=== PATIENT | male | born 1935 | race Caucasian/White ===

== ENCOUNTER 2017-09-21 21:06 | Observation (INO) ==
[2017-09-21] MEDS ORDERED: Ondansetron 4 MG/2 ML VIAL IVP ONE (21:41)
--- NOTE | 2017-09-21 21:44 | Emergency Department Note ---
Disposition Clinical Impression: Vertigo Disposition: Admitted As Inpatient Condition: Fair Referrals: Flakito Pascual CNP [Primary Care Provider] - Forms: ED Satisfaction Letter Dizziness HPI - General Chief Complaint: ED Dizziness Stated Complaint: Dizziness Nausea Time Seen by Provider: 09/21/17 21:10 Source: patient Mode of arrival: EMS Limitations: no limitations Nursing Notes Reviewed: Yes Vital Signs Reviewed: Yes - History of Present Illness HPI Narrative: 82-year-old male since for evaluation of dizziness, nausea vomiting, sweating, and tinnitus. Patient states he had his ear cleaned out on the left side yesterday because of cerumen impaction. Today while eating he developed sudden onset of dizziness nausea vomiting and tinnitus. He states no associated headache. He denies any chest pain or shortness of breath. He states no weakness of his upper and lower extremities. - Related Data Home Medications Medication Instructions Recorded Confirmed Antiox#10/Om3/Dha/Epa/Lut/Zeax 1 each PO DAILY 07/27/15 07/27/15 [I-Caps with Lutein-[place] 3 Sfg] Aspirin [Adult Low Dose Aspirin EC] 81 mg PO DAILY 07/27/15 07/27/15 Garlic 1,000 mg PO DAILY 07/27/15 07/27/15 Multivit with Iron-Minerals 1 each PO DAILY 07/27/15 07/27/15 [Compete] Omeprazole [PriLOSEC] 20 mg PO DAILY 07/27/15 07/27/15 Vitamin B Complex/Folic Acid 2,000 mcg PO DAILY 07/27/15 07/27/15 [B-Stress Capsules] Previous Rx's Medication Instructions Recorded Dicyclomine [Bentyl] 20 mg PO QID #20 capsule 07/27/15 Allergies Allergy/AdvReac Type Severity Reaction Status Date / Time Sulfa (Sulfonamide AdvReac Nausea Verified 07/27/15 18:02 Antibiotics) Review of Systems: Constitutional: [Negative for fever and chills.] HENT: [Negative for congestion.] Eyes: [Negative for discharge.] Respiratory: [Negative for shortness of breath.] Cardiovascular: [Negative for chest pain.] Gastrointestinal: [Negative for nausea, vomiting, abdominal pain and diarrhea.] Endocrine: [Negative for excessive thirst,urination] Genitourinary: [Negative for dysuria and frequency.] Musculoskeletal: [Negative for myalgias and arthralgias.] Skin: [Negative for rash.] Neurological: see The history of present illness Psychiatric/Behavioral: [Negative for nervous/anxious.] All other systems reviewed and are negative. Past Medical History - Past Medical History Attestation: Yes The following information was validated with the patient. Source: patient Medical history: Reports: cancer, other Psychiatric history: Reports: no psych history - Social History Smoking Status: Former smoker Smokeless Tobacco Status: No Alcohol use: Reports: none Drug use: Reports: none Physical Exam Constitutional: Patient is [alert], appears very uncomfortable keeping his eyes closed and not wanting to move his head and cooperative. . The patient appears symptomatic, nontoxic but does appear acutely vertiginous. HENT: Head: Normocephalic and atraumatic. Right Ear: External ear normal. Left Ear: External ear normal. Nose: Nose normal. Mouth/Throat: Oropharynx is clear and mucous membranes show [good hydration.] Eyes: Conjunctivae and EOM are normal. Pupils are equal, round, and reactive to light. Right eye exhibits [no] discharge. Left eye exhibits [no] discharge. Neck: Trachea is midline, normal range of motion and [phonation normal]. Neck supple. Cardiovascular: [Regular rhythm], S1 normal, S2 normal, normal heart sounds and intact distal pulses. Exam reveals no gallop and no friction rub. No murmur heard. [Capillary refill is brisk.] [Peripheral pulses are 2+] Pulmonary/Chest: Effort [normal] No stridor. [No] tachypnea. [No] respiratory distress. There are [no] decreased breath sounds. [There no wheezes, no rhonchi , or rales.] Abdominal: Soft. [Bowel sounds are normal]. There exhibits [no] distension and [no] mass. There is no hepatosplenomegaly. There is [no tenderness], [no] CVA tenderness. There is [no rigidity, no rebound, no guarding]. Musculoskeletal: Normal range of motion of uninvolved extremities. There exhibits [no edema]. [ ] Neurological: Patient is alert. He has no focal motor sensory deficits Patient displays no atrophy and no tremor. No cranial nerve deficit and exhibits normal muscle tone. Coordination normal to finger to nose and heel to rebollar testing. Skin: Skin is warm and dry. No erythema. No rash noted. Psychiatric: Patient has a normal mood and affect. Course Course Narrative: Patient was discussed with Dr. Milton for admission. Patient continues to have vomiting and dizziness despite interventions here in the emergency department Dr. Milton is except the patient for admission Vital Signs Temperature 97.6 F 09/21/17 21:28 Pulse Rate 72 09/21/17 21:28 Respiratory Rate 20 09/21/17 21:28 Blood Pressure 133/75 09/21/17 21:28 O2 Sat by Pulse Oximetry 96 09/21/17 21:28 Temperature 97.6 F 09/21/17 21:28 Pulse Rate 79 09/21/17 23:22 Respiratory Rate 18 09/21/17 23:22 Blood Pressure 125/69 09/21/17 23:22 O2 Sat by Pulse Oximetry 95 09/21/17 23:22 Oxygen Delivery Oxygen Delivery Room Air Dizziness - MDM Narrative Medical decision making narrative: Differential diagnosis included SUBARACHNOID HEMORRHAGE, MENINGITIS, INTRACRANIAL HEMORRHAGE, SUBDURAL HEMATOMA, CEREBRAL EDEMA, HYDROCEPHALUS, OR STROKE - Lab Data Lab results reviewed: Yes I reviewed the patient's lab results. Result diagrams: 09/21/17 21:25 09/21/17 21:25 Lab Results 09/21/17 09/21/17 Range/Units 21:25 21:25 WBC 11.6 H (4.3-11.1) K/mcL RBC 3.71 L (4.19-5.50) M/mcL Hgb 12.4 L (12.9-16.9) g/dL Hct 36.6 L (37.5-50.1) % MCV 98.7 (83.0-100.0) fL MCH 33.4 H (28.0-33.3) pg MCHC 33.9 (31.6-35.5) g/dL RDW 13.1 (11.5-14.5) % Plt Count 391 (140-400) K/mcL MPV 9.8 (9.4-12.4) fL Immature Gran % 0.2 (0-4) % Seg Neutrophils % 28.3 % Lymphocytes % 55.9 % Monocytes % 10.4 % Eosinophils % 4.8 % Basophils % 0.4 % Neutrophils # 3.3 (1.6-8.9) K/mcL Lymphocytes # 6.5 H (0.6-4.6) K/mcL Monocytes # 1.2 (0.0-1.3) K/mcL Eosinophils # 0.6 (0.0-0.6) K/mcL Basophils # 0.1 (0.0-0.2) K/mcL Sodium 140 (136-145) mEq/L Potassium 3.2 L (3.5-5.1) mEq/L Chloride 108 H (98-107) mEq/L Carbon Dioxide 22 L (23-29) mEq/L BUN 22 (8-23) mg/dL Creatinine 1.33 H (0.70-1.30) mg/dL Est GFR ( Amer) > 60 (> 60) Est GFR (Non-Af Amer) 51 L (> 60) BUN/Creatinine Ratio 17 (6-26) Glucose 115 H (70-105) mg/dL Calculated Osmolality 294 (280-300) Calcium 9.8 (8.6-10.3) mg/dL Total Bilirubin 0.3 (0.3-1.0) mg/dL AST 14 (13-39) Units/L ALT 12 (7-52) Units/L Alkaline Phosphatase 57 (34-104) Units/L Serum Total Protein 7.2 (6.4-8.9) g/dL Albumin 4.1 (3.5-5.7) g/dL Globulin 3.1 (2.4-3.5) g/dL Albumin/Globulin Ratio 1.3 (1.1-2.2) - Radiology Data Radiology results reviewed: Yes I reviewed the patient's radiology results. CT/CT head/brain wo con IMPRESSION: No acute intracranial abnormality. - EKG Data EKG attestation: Yes I reviewed and interpreted this EKG. EKG shows normal: sinus rhythm, axis, intervals, QRS complexes, ST-T waves Interpretation: normal EKG
[2017-09-21 21:47] LABS: Basophils # 0.1 K/mcL (0.0-0.2); Basophils % 0.4 %; Eosinophils # 0.6 K/mcL (0.0-0.6); Eosinophils % 4.8 %; Hematocrit 36.6 % (37.5-50.1); Hemoglobin 12.4 g/dL (12.9-16.9); Immature Granulocytes % 0.2 % (0-4); Lymphocytes # 6.5 K/mcL (0.6-4.6); Lymphocytes % 55.9 %; Mean Corpuscular HGB Conc 33.9 g/dL (31.6-35.5); Mean Corpuscular Hemoglobin 33.4 pg (28.0-33.3); Mean Corpuscular Volume 98.7 fL (83.0-100.0); Mean Platelet Volume 9.8 fL (9.4-12.4); Monocytes # 1.2 K/mcL (0.0-1.3); Monocytes % 10.4 %; Neutrophils # 3.3 K/mcL (1.6-8.9); Platelet Count 391 K/mcL (140-400); Red Blood Count 3.71 M/mcL (4.19-5.50); Red Cell Distribution Width 13.1 % (11.5-14.5); Segmented Neutrophils % 28.3 %
[2017-09-21 22:00] LABS: Alanine Aminotransferase 12 Units/L (7-52); Albumin 4.1 g/dL (3.5-5.7); Albumin/Globulin Ratio 1.3 (1.1-2.2); Alkaline Phosphatase 57 Units/L (34-104); Aspartate Amino Transferase 14 Units/L (13-39); BUN/Creatinine Ratio 17 (6-26); Bilirubin,Total 0.3 mg/dL (0.3-1.0); Blood Urea Nitrogen 22 mg/dL (8-23); Calcium 9.8 mg/dL (8.6-10.3); Carbon Dioxide 22 mEq/L (23-29); Chloride 108 mEq/L (98-107); Globulin 3.1 g/dL (2.4-3.5); Glucose 115 mg/dL (70-105); Osmolality,Calculated 294 (280-300); Potassium 3.2 mEq/L (3.5-5.1); Sodium 140 mEq/L (136-145); Total Protein 7.2 g/dL (6.4-8.9); eGFR For Non-African Americans 51 (> 60)
[2017-09-21] MEDS ORDERED: *HR* Promethazine 25 MG/ML VIAL ONE (22:32)
[2017-09-21] MEDS ORDERED: *HR* Promethazine 25 MG/ML VIAL IVP ONE (22:35)
[2017-09-21] MEDS ORDERED: Acetaminophen 325 MG TABLET PO PRN (23:26)
[2017-09-21] MEDS ORDERED: Naloxone 0.4 MG/ML INJ IVP PRN (23:26)
[2017-09-21] MEDS ORDERED: diazePAM 10 MG/2 ML SYRINGE IVP PRN (23:27)
[2017-09-22] MEDS ORDERED: *HR* Promethazine 25 MG/ML VIAL IVP PRN (01:05)
[2017-09-22] MEDS: 0.9 % Sodium Chloride 1,000 ML IVC SCH ×2 (01:20→10:52)
[2017-09-22] MEDS: diazePAM 5 MG TABLET PO PRN ×2 (01:22→06:14)
[2017-09-22] MEDS ORDERED: *HR* Promethazine 25 MG/ML VIAL IVP SCH (04:00)
[2017-09-22 07:28] LABS: BUN/Creatinine Ratio 17 (6-26); Blood Urea Nitrogen 19 mg/dL (8-23); Calcium 9.1 mg/dL (8.6-10.3); Carbon Dioxide 24 mEq/L (23-29); Chloride 107 mEq/L (98-107); Glucose 148 mg/dL (70-105); Osmolality,Calculated 289 (280-300); Potassium 4.1 mEq/L (3.5-5.1); Sodium 137 mEq/L (136-145); eGFR For Non-African Americans > 60 (> 60)
--- NOTE | 2017-09-22 07:34 | Internal Med History&Physical ---
Date of Encounter: 09/22/17 Time of Encounter: 07:27 Assessment and Plan (1) Vertigo Current visit: Yes Status: Acute Patient admitted with acute vertigo with related nausea and vomiting and gait abnormality. He is currently in an observation bed. He is too ill to go home at this time. He will be reassessed later today. Meclizine, Phenergan, Valium , IV fluids have been helpful. Negative workup in the ER except for acute kidney injury and hyperkalemia likely related to his vomiting. Negative CT scan of head. Neurologically otherwise intact. (2) Tinnitus of both ears Current visit: Yes Status: Chronic Chronic history of tinnitus. He has an appointment with ENT in about a month. He has difficulty sleeping at night because of it. He has tried "white noise" and background noise and this has not been helpful. (3) Hypokalemia Current visit: Yes Status: Acute Mild hypokalemia on admission. Follow-up electrolytes has been ordered. Was given a dose of potassium in the ER. This is likely from his vomiting. (4) Acute kidney injury Current visit: Yes Status: Acute Acute kidney injury with slightly elevated creatinine from baseline. IV fluids have been initiated. Follow-up lab work has been ordered. Internal Medicine - H&P: HPI Chief complaint: I got dizzy and started throwing up Admitted From: Emergency Dept Plans for Post Hospital Care: Home History of present illness: Mr. 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 He was his usual self until he was seen in the office on 09/19/17 for impacted cerumen in the left ear which was removed by direct visualization with an ear currette. He apparently did well afterwards. Last night however, he was at [employer] and having a conversation with a friend and drinking a Sprite when he had sudden onset of "dizziness" and weakness, sweating and vomiting. They could not get him to his car and had to call the squad. In the ER he was evaluated for vertigo. He had a negative CT scan of the head. He was given meclizine and we started diazepam and he is feeling better. His nausea seems to have quieted down but is not hungry. He prefers to stay in his left side, but after the exam was able to turn to his right side. He denies any headache, blurred vision, change in vision acutely at this time, vomiting, unilateral focal deficit, change in speech etc. He has not tried to sit up or walk since admission. He has used the urinal while lying on his side Past Med Surg Social Fam HX - Past Medical History Medical history: cancer (Prostate cancer 1984, renal cell carcinoma 1988), other (Hyperactive bladder, blind in left eye since age 1.) Psychiatric history: no psych history - Past Surgical History Surgical History: non-contributory, cancer surgery - Social History Smoking Status: Former smoker Smokeless Tobacco Status: No Alcohol use: none Drug use: none - Family History Father Living Status: Hx Family Neuromuscular Disorders: Yes (CVA) Mother Living Status: Hx Family Endocrine Disorder: Yes (Diabetes) Hx Family Reproductive Disorders: Yes (Cervical cancer) Internal Medicine - H&P: Meds Antiox#10/Om3/Dha/Epa/Lut/Zeax [I-Caps with Lutein-[place] 3 Sfg] 1 each PO DAILY 07/27/15 [History] Aspirin [Adult Low Dose Aspirin EC] 81 mg PO DAILY 07/27/15 [History] Dicyclomine [Bentyl] 20 mg PO QID #20 capsule 07/27/15 [Rx] Garlic 1,000 mg PO DAILY 07/27/15 [History] Multivit with Iron-Minerals [Compete] 1 each PO DAILY 07/27/15 [History] Omeprazole [PriLOSEC] 20 mg PO DAILY 07/27/15 [History] Vitamin B Complex/Folic Acid [B-Stress Capsules] 2,000 mcg PO DAILY 07/27/15 [ History] 3 Allergy/AdvReac Type Severity Reaction Status Date / Time Sulfa (Sulfonamide AdvReac Nausea Verified 07/27/15 18:02 Antibiotics) - Constitutional Constitutional: as per HPI, no chills, no fever(s) - EENT Eyes: other visual disturbances (Blind in left eye since 1 years of age) Ears: no ear discharge, no ear pain Nose, mouth and throat: dry mouth, no neck mass, no neck pain, no sinus pressure , no sore throat - Cardiovascular Cardiovascular ROS IM: no chest pain, no dyspnea, no dyspnea on exertion, no syncope - Respiratory Respiratory: no cough, no dyspnea, no hemoptysis, no dyspnea on exertion, no pain with cough - Gastrointestinal Gastrointestinal: as per HPI, vomiting (As in history of present illness), no constipation, no diarrhea, no melena - Genitourinary Genitourinary ROS male: no urinary incontinence, no urinary urgency - Musculoskeletal Musculoskeletal ROS IM: no joint swelling, no muscle weakness - Integumentary Integumentary IM: no rash - Neurological Neurological ROS: as per HPI, vertigo, no abnormal speech, no confusion, no frequent falls, no tremor(s) - Psychiatric Psychiatric: no hallucinations - Constitutional Vitals: Temp Pulse Resp BP Pulse Ox 97.7 F 78 16 110/70 96 09/22/17 04:02 09/22/17 04:02 09/22/17 04:02 09/22/17 04:02 09/22/17 04:02 General appearance: Present: mild distress (Remains on his left side during exam for fear it would cause dizziness to move), A&O X 3, answers questions appropriately - Head Head exam: Present: atraumatic, normal inspection - Eye Eye exam: Present: EOMI. Absent: conjunctival injection Additional comments: The right pupil is reactive to light. I could not elicit nystagmus. No photophobia. 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 Absent: respiratory distress - Cardiovascular Cardiovascular exam: Present: RRR, +S1, +S2 - GI/Abdominal GI/Abdominal exam: Present: hernia (Epigastric midline hernia over his incision. It measures about 4 cm in diameter and easily reducible), soft, no peritoneal signs. Absent: mass, tenderness - Extremities Exam Extremities exam: Present: full ROM. Absent: calf tenderness, pedal edema, tenderness - Neurological Exam Neurological exam: Present: alert, CN II-XII intact (Except he is legally blind in the left eye), oriented X3, strengths equal and symetr throughout. Absent: facial droop, speech deficit Additional comments: Because he has vertigo I did not check his exam in seated position or standing at this time Internal Med - H&P Results - Labs CBC & Chem 7: 09/21/17 21:25 09/22/17 06:40 Labs: labs have been reviewed. Mild hyponatremia. Mild acute kidney injury. Follow- up lab work pending - VTE Documentation of Mechanical Device: Graduated compression elastic hosiery
[2017-09-22] MEDS ORDERED: diazePAM 5 MG TABLET PO PRN (07:44)
[2017-09-22] MEDS: *HR* Promethazine 25 MG/ML VIAL IVP PRN ×2 (09:02→23:12)
[2017-09-22] MEDS: Multivit/Ca/Min/Fe/FA 1 TAB TABLET PO SCH ×2 (09:55→10:02)
[2017-09-22] MEDS: Aspirin Enteric Coated 81 MG Tablet PO SCH (09:55)
[2017-09-22] MEDS: Vitamin B Complex/Vit C/Vit E 1 EACH TABLET PO SCH ×2 (09:56→10:01)
[2017-09-22] MEDS: (Garlic [Garlic] 1,000 MG) PO SCH (09:56)
[2017-09-22] MEDS: [UNRECOGNIZED DRUG - OTHER] PO SCH (09:56)
--- NOTE | 2017-09-22 20:25 | Event Note ---
Date of Encounter: 09/22/17 Time of Encounter: 20:22 I reevaluated the patient tonight after he has had multiple doses of meclizine and diazepam and has had IV fluids. He is eating a very small amount. He sent back most of his tender. He is not interested in eating. He said he had 3 bowel movements and feels like he has some lower abdominal cramping now. He is able to sit at the edge of the bed and with help ambulate about 10 feet to the bathroom. He still feels unstable on his feet. The room does not spin though. When I helped ambulate him to the bathroom, he was unsteady on his feet , drifted to the right side. It was difficult to even get from seated position on the edge of the bed to standing position and needed assistance. He is not ready to safely go home. We will continue IV fluids, meclizine, Valium if needed and time. He will be re-evaluated tomorrow by Dr. Red and most likely discharge at that time. I do not find any new focal neurological change. He did have some lower abdominal cramping when sitting up and has not gone to the bathroom. His abdominal examination was basically normal. Bowel sounds are normal. We will reassess further if needed.
--- NOTE | 2017-09-22 20:28 | Discharge Summary ---
Procedures/tests Complete & Pending: Procedures Performed prior 72 hours Category Date Time Status ECG 12 lead ECG [ECG] Routine Y 09/21/17 21:14 Completed Lab Results 09/21/17 09/21/17 09/22/17 Range/Units 21:25 21:25 06:40 WBC 11.6 H (4.3-11.1) K/mcL RBC 3.71 L (4.19-5.50) M/mcL Hgb 12.4 L (12.9-16.9) g/dL Hct 36.6 L (37.5-50.1) % MCV 98.7 (83.0-100.0) fL MCH 33.4 H (28.0-33.3) pg MCHC 33.9 (31.6-35.5) g/dL RDW 13.1 (11.5-14.5) % Plt Count 391 (140-400) K/mcL MPV 9.8 (9.4-12.4) fL Immature Gran % 0.2 (0-4) % Seg Neutrophils % 28.3 % Lymphocytes % 55.9 % Monocytes % 10.4 % Eosinophils % 4.8 % Basophils % 0.4 % Neutrophils # 3.3 (1.6-8.9) K/mcL Lymphocytes # 6.5 H (0.6-4.6) K/mcL Monocytes # 1.2 (0.0-1.3) K/mcL Eosinophils # 0.6 (0.0-0.6) K/mcL Basophils # 0.1 (0.0-0.2) K/mcL Sodium 140 137 (136-145) mEq/L Potassium 3.2 L 4.1 D (3.5-5.1) mEq/L Chloride 108 H 107 (98-107) mEq/L Carbon Dioxide 22 L 24 (23-29) mEq/L BUN 22 19 (8-23) mg/dL Creatinine 1.33 H 1.13 (0.70-1.30) mg/dL Est GFR ( Amer) > 60 > 60 (> 60) Est GFR (Non-Af Amer) 51 L > 60 (> 60) BUN/Creatinine Ratio 17 17 (6-26) Glucose 115 H 148 H (70-105) mg/dL Calculated Osmolality 294 289 (280-300) Calcium 9.8 9.1 (8.6-10.3) mg/dL Total Bilirubin 0.3 (0.3-1.0) mg/dL AST 14 (13-39) Units/L ALT 12 (7-52) Units/L Alkaline Phosphatase 57 (34-104) Units/L Serum Total Protein 7.2 (6.4-8.9) g/dL Albumin 4.1 (3.5-5.7) g/dL Globulin 3.1 (2.4-3.5) g/dL Albumin/Globulin Ratio 1.3 (1.1-2.2) Date of Encounter: 09/22/17 Time of Encounter: 19:30 - Discharge Diagnosis (1) Vertigo Priority: Primary Status: Acute Comments: Patient was admitted for acute vertiginous symptoms. Workup including CT scan of the head and lab work unremarkable. No signs of CVA. He required admission to observation bed, IV fluids, IV Phenergan, meclizine, diazepam/Valium to get things under control. When reassessed later in the day he was still unstable on his feet, drifted to the left side when going to the bathroom. Has some continued lower GI symptoms. Patient was assessed by Dr. Red on Monday09/23/17 and was discharged to home. Please see his progress note. (2) Tinnitus of both ears Priority: Secondary Status: Chronic Comments: Chronic history of tinnitus. He has an appointment to see an ENT next month. Ear examination is normal. (3) Hypokalemia Priority: Secondary Status: Resolved Comments: On admission his potassium was low at 3.2 . Was given at least 1 dose orally. Today's potassium is normalized. (4) Acute kidney injury Priority: Secondary Status: Resolved Comments: On admission his creatinine was 1.66 with diminished GFR. This is abnormal from his baseline. He was given IV fluids. Follow-up creatinine is normal. Likely the etiology was his vomiting and prerenal changes. Hospital course: Mr. Honeycutt is a 82 year old male was admitted with vertiginous symptoms with nausea vomiting and unstable gait. Please see the history of physical and see the diagnoses as above. Patient was to be evaluated on Monday the prior to discharge. See Dr. Red's progress note. - Time Spent with Patient Total time spent providing and/or coordinating discharge services: - Discharge Medications Prescriptions: diazePAM [Valium] 2.5 mg PO Q4H PRN 7 Days #30 tablet PRN Reason: Dizziness Meclizine [Antivert] 25 mg PO Q4H PRN #30 tablet PRN Reason: Dizziness Home Medications: Antiox#10/Om3/Dha/Epa/Lut/Zeax [I-Caps with Lutein-[place] 3 Sfg] 1 each PO DAILY 07/27/15 [History] Aspirin [Adult Low Dose Aspirin EC] 81 mg PO DAILY 07/27/15 [History] Dicyclomine [Bentyl] 20 mg PO QID #20 capsule 07/27/15 [Rx] Garlic 1,000 mg PO DAILY 07/27/15 [History] Multivit with Iron-Minerals [Compete] 1 each PO DAILY 07/27/15 [History] Omeprazole [PriLOSEC] 20 mg PO DAILY 07/27/15 [History] Vitamin B Complex/Folic Acid [B-Stress Capsules] 2,000 mcg PO DAILY 07/27/15 [ History] Acetaminophen [Tylenol] 650 mg PO Q6HR PRN tablet 09/22/17 [Rx] Meclizine [Antivert] 25 mg PO Q4H PRN #30 tablet 09/22/17 [Rx] diazePAM [Valium] 2.5 mg PO Q4H PRN 7 Days #30 tablet 09/22/17 [Rx] Allergies/Adverse Reactions: 3 Allergy/AdvReac Type Severity Reaction Status Date / Time Sulfa (Sulfonamide AdvReac Nausea Verified 07/27/15 18:02 Antibiotics) Date of admission: 09/22/17 00:06 Primary care physician: Flakito Pascual CNP Discharging clinician: Ramya Red Anticipated date of discharge: 09/23/17 - Constitutional Vitals: Temp Pulse Resp BP Pulse Ox 98.8 F 66 17 110/77 97 09/22/17 19:00 09/22/17 19:00 09/22/17 19:00 09/22/17 19:00 09/22/17 19:00 Exam: See the physical examination as outlined by Dr. Red on day of discharge. - Patient Status Disposition: Home, Self-Care Condition: Fair Overall status at discharge: patient is progressing back to baseline - Discharge Instructions Instructions: Vertigo (DC) Follow Up With: Mohit Milton MD [Partnered Physician] - 09/25/17 3:00 pm Additional Instructions: discharge today followup with PC next week - VTE Documentation of Mechanical Device: Graduated compression elastic hosiery
[2017-09-23 06:59] VITALS: BP 114/68
--- NOTE | 2017-09-23 08:32 | Internal Med Progress Note ---
Date of Encounter: 09/23/17 Time of Encounter: 08:29 - Assessment and plan (1) Vertigo Current Visit: Yes Status: Acute Assessment and plan: improved considerable .ON meclazine and small dose of Benzo . Able to walk now and would like to go home .He states that he is able to manage himself now He can be discharged with followup with PC (2) Hypokalemia Current Visit: Yes Status: Resolved (3) Acute kidney injury Current Visit: Yes Status: Resolved - Subjective Interval history: pt admitted for dizzyness and difficulty to walk due to dizziness.At the present time he feels much better . his dizziness although present but has improved considerable . he is able to getup without getting dizzy and walk without support no SOB No fever or chill able to eat no SOB or any other complains - Constitutional Vitals: Temp Pulse Resp BP Pulse Ox 98.8 F 57 18 114/68 98 09/23/17 06:58 09/23/17 06:58 09/23/17 06:58 09/23/17 06:58 09/23/17 06:58 General appearance: Present: A&O X 0, cooperative, mild distress (Remains on his left side during exam for fear it would cause dizziness to move), A&O X 3, pleasant, no acute distress, answers questions appropriately - Eye Eye exam: Present: normal appearance (right eye signt none ) - Neck Neck exam general surgery: Present: supple. Absent: tenderness, nuchal rigidity (slightly crooked neck favoring more towards left side which has been chronic ) - Respiratory Respiratory exam: Present: CTAB. Absent: chest wall tenderness, decreased breath sounds, respiratory distress, rhonchi, stridor, wheezes - Cardiovascular Cardiovascular exam: Present: RRR, +S1, +S2, systolic murmur (soft systolic murmer noted at the apex no radiation ). Absent: bradycardia, irregular rhythm , JVD, rubs - GI/Abdominal GI/Abdominal exam: Present: normal bowel sounds, soft. Absent: diminished bowel sounds, guarding, hepatomegaly, mass, pulsatile mass, rebound, rigid, tenderness - Neurological Exam Neurological exam: Present: alert, altered, CN II-XII intact, no focal deficits Internal Medicine: Result - Labs CBC & Chem 7: 09/21/17 21:25 09/22/17 06:40 Labs: last labs K levels improved . WBC not done - VTE Documentation of Mechanical Device: Graduated compression elastic hosiery Consult Discharge Plan - Plan Additional Instructions: discharge today followup with PC next week Referrals: Mohit Milton MD [Partnered Physician] - 09/25/17 3:00 pm Prescriptions: diazePAM [Valium] 2.5 mg PO Q4H PRN 7 Days #30 tablet PRN Reason: Dizziness Meclizine [Antivert] 25 mg PO Q4H PRN #30 tablet PRN Reason: Dizziness
[2017-09-23] MEDS: Vitamin B Complex/Vit C/Vit E 1 EACH TABLET PO SCH (09:16)
[2017-09-23] MEDS: [UNRECOGNIZED DRUG - OTHER] PO SCH (09:17)
[2017-09-23] MEDS: Multivit/Ca/Min/Fe/FA 1 TAB TABLET PO SCH (09:17)
[2017-09-23] MEDS: (Garlic [Garlic] 1,000 MG) PO SCH (09:17)
[2017-09-23] MEDS: Aspirin Enteric Coated 81 MG Tablet PO SCH (09:17)
--- NOTE | 2017-09-24 11:06 | Electrocardiograph Report ---
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
== END 2017-09-23 09:30 | disposition home or self-care (01) ==
LOC: EMEROOGRE 21:06 → INPGRE 21:06
PROVIDERS: ADMIT Family Medicine; ATTEND Family Medicine

== ENCOUNTER 2020-11-06 22:19 | Observation (INO) ==
[2020-11-06 23:02] LABS: Basophils % 0.5 %; Eosinophils # 0.3 K/mcL (0.0-0.6); Eosinophils % 5.1 %; Hematocrit 32.3 % (37.5-50.1); Hemoglobin 10.8 g/dL (12.9-16.9); Immature Granulocytes % 0.2 % (0-4); Lymphocytes # 2.8 K/mcL (0.6-4.6); Lymphocytes % 42.5 %; Mean Corpuscular HGB Conc 33.4 g/dL (31.6-35.5); Mean Corpuscular Hemoglobin 34.4 pg (28.0-33.3); Mean Corpuscular Volume 102.9 fL (83.0-100.0); Mean Platelet Volume 10.7 fL (9.4-12.4); Monocytes # 0.8 K/mcL (0.0-1.3); Neutrophils # 2.6 K/mcL (1.6-8.9); Platelet Count 297 K/mcL (140-400); Red Blood Count 3.14 M/mcL (4.19-5.50); Segmented Neutrophils % 39.7 %; White Blood Count 6.5 K/mcL (4.3-11.1)
[2020-11-06 23:10] LABS: INR 1.1; Prothrombin Time 12.8 Seconds (9.4-12.1)
[2020-11-06 23:13] LABS: Activated Partial Thrombo Time 37.4 Seconds (26.0-36.0)
[2020-11-06 23:22] LABS: Alanine Aminotransferase 12 Units/L (7-52); Albumin 4.2 g/dL (3.5-5.7); Albumin/Globulin Ratio 1.2 (1.1-2.2); Alkaline Phosphatase 51 Units/L (34-104); Aspartate Amino Transferase 18 Units/L (13-39); BUN/Creatinine Ratio 18 (6-26); Bilirubin,Total 0.4 mg/dL (0.3-1.0); Blood Urea Nitrogen 28 mg/dL (8-23); Calcium 9.7 mg/dL (8.6-10.3); Carbon Dioxide 23 mEq/L (23-29); Chloride 107 mEq/L (98-107); Globulin 3.5 g/dL (2.4-3.5); Glucose 108 mg/dL (70-105); Osmolality,Calculated 290 (280-300); Sodium 137 mEq/L (136-145); Total Protein 7.7 g/dL (6.4-8.9); eGFR For African Americans 52 (> 60); eGFR For Non-African Americans 43 (> 60)
[2020-11-06 23:25] LABS: Troponin I < 0.03 ng/mL (< 0.04)
[2020-11-07] MEDS ORDERED: 0.9 % Sodium Chloride 1,000 ML IVC SCH ×2 (00:15→00:58)
[2020-11-07] MEDS ORDERED: Ondansetron ODT 4 MG TAB.RAPDIS SL PRN (00:58)
[2020-11-07] MEDS ORDERED: Naloxone 0.4 MG/ML INJ IVP PRN ×2 (00:58)
[2020-11-07 01:28] LABS: Bilirubin,Urine Negative (Negative); Blood,Urine Negative (Negative); Clarity,Urine Clear (Clear); Color,Urine Yellow (Yellow); Glucose,Urine (UA) Normal (Normal); Ketones,Urine Negative (Negative); Leukocyte Esterase,Urine Negative (Negative); Nitrite,Urine Negative (Negative); Protein,Urine Negative (Neg-Trace); Specific Gravity,Urine 1.025 (1.010-1.025); Urobilinogen,Urine Normal (Normal)
[2020-11-07] MEDS ORDERED: Melatonin 3 MG TABLET PO PRN (02:51)
[2020-11-07 05:57] LABS: Basophils % 0.3 %; Eosinophils # 0.4 K/mcL (0.0-0.6); Eosinophils % 5.7 %; Hematocrit 30.1 % (37.5-50.1); Immature Granulocytes % 0.1 % (0-4); Lymphocytes # 2.9 K/mcL (0.6-4.6); Lymphocytes % 39.2 %; Mean Corpuscular HGB Conc 33.2 g/dL (31.6-35.5); Mean Corpuscular Volume 102.4 fL (83.0-100.0); Mean Platelet Volume 10.8 fL (9.4-12.4); Monocytes % 13.1 %; Neutrophils # 3.1 K/mcL (1.6-8.9); Platelet Count 271 K/mcL (140-400); Red Blood Count 2.94 M/mcL (4.19-5.50); Segmented Neutrophils % 41.6 %; White Blood Count 7.4 K/mcL (4.3-11.1)
[2020-11-07] MEDS ORDERED: *HR* Enoxaparin 40 MG/0.4 ML SYRINGE SQ SCH (06:00)
[2020-11-07 06:12] LABS: BUN/Creatinine Ratio 18 (6-26); Blood Urea Nitrogen 25 mg/dL (8-23); Calcium 9.1 mg/dL (8.6-10.3); Carbon Dioxide 23 mEq/L (23-29); Chloride 107 mEq/L (98-107); Glucose 96 mg/dL (70-105); Osmolality,Calculated 284 (280-300); Potassium 3.4 mEq/L (3.5-5.1); Sodium 135 mEq/L (136-145); Troponin I < 0.03 ng/mL (< 0.04); eGFR For African Americans > 60 (> 60); eGFR For Non-African Americans 50 (> 60)
[2020-11-07] MEDS ORDERED: Aspirin Enteric Coated 81 MG Tablet PO SCH (09:00)
[2020-11-07] MEDS ORDERED: Multivit/Ca/Min/Fe/FA 1 TAB TABLET PO SCH (09:00)
[2020-11-07] MEDS ORDERED: Fluticasone Propionate Nasal 50 MCG/SPRAY BOTTLE NS SCH (09:00)
[2020-11-07 11:36] VITALS: BP 143/76
[2020-11-07] MEDS ORDERED: Latanoprost 2.5 ML BOTTLE RIGHT EYE SCH (21:00)
== END 2020-11-07 16:11 | disposition home or self-care (01) ==
LOC: INPGRE 22:19 → EMEROOGRE 22:19 → INPGRE 11-07 01:05
PROVIDERS: ADMIT Family Medicine; ATTEND Family Medicine